=== PATIENT | female | born 2000 | race Caucasian/White ===

== ENCOUNTER 2021-04-26 13:34 | Emergency (ER) | payer OTHER ==
[2021-04-26 17:59] LABS: Bilirubin Neg (Negative); Blood, Urine Negative (Negative); Clarity Clear (Clear); Glucose, Urine (Dipstick) Normal (Negative); Ketone, Urine Negative (Negative); Leukocyte Negative (Negative); Nitrite Negative (Negative); Protein, Urine (Dipstick) Negative (Neg-Trace); Specific Gravity, Urine 1.005 (1.002-1.036); Urobilinogen Normal mg/dL (Less than 2); pH, Urine 6.5 (5.0-9.0)
[2021-04-26 18:06] LABS: Pregnancy Test - Urine (BHCG) Negative (Negative); Specific Gravity 1.005 (1.002-1.036)
[2021-04-26 18:07] LABS: Pregu Control Background? CLEAR/WHITE (CLR/WHITE); Pregu Control Bar Appear? YES (CONTROL BAR)
== END 2021-04-26 18:34 | disposition home or self-care (01) ==
LOC: CSHERS 13:34
DX: R55 Syncope and collapse (principal)
CPT/HCPCS: 81003; 81025; 93005